=== PATIENT | male | born 1985 | race Two or more races ===

== ENCOUNTER 2018-08-08 11:07 | Emergency (ER) | payer MEDICAID ==
[~2018-08-08] VITALS: Ht 185.4 cm; Wt 99.8 kg
[2018-08-08] MEDS ORDERED: FLUORESCEIN SODIUM 1 MG STRIP OP ONE (11:30)
[2018-08-08] MEDS ORDERED: TETRACAINE HCL 0.5% OPHT DROP 2 ML BOTTLE OP ONE (11:30)
[2018-08-08] MEDS ORDERED: TETRACAINE HCL 0.5% OPHT DROP 2 ML BOTTLE ONE (11:32)
[2018-08-08] MEDS ORDERED: FLUORESCEIN SODIUM 1 MG STRIP ONE (11:32)
--- NOTE | 2018-08-08 11:40 | NUR ---
spoke with ([facility]) via telephone.
[2018-08-08] MEDS ORDERED: GENTAMICIN SULFATE OPHT DROP 5 ML BOTTLE ONE (11:58)
[2018-08-08] MEDS ORDERED: GENTAMICIN SULFATE OPHT DROP 5 ML BOTTLE OP ONE (12:00)
--- NOTE | 2018-08-08 12:01 | NUR ---
Patient is now waiting for the metal eye shield from [employer]@this time. [employer] staff Edwin [email or web address].
--- NOTE | 2018-08-08 12:59 | NUR ---
Patient discharged to home in stable conditon. Written and verbal after care instructions given. Patient verbalizes understanding of instructions. Stressed follow up as advised by . Eye shield was placed to left eye by Mahendra Maynard LVN as ordered by .
== END 2018-08-08 13:01 | disposition home or self-care (01) ==
LOC: ER 11:10
DX: S05.02XA Injury of conjunctiva and corneal abrasion without foreign body, left eye, initial encounter (principal); W22.8XXA Striking against or struck by other objects, initial encounter; Y93.89 Activity, other specified; Y92.89 Other specified places as the place of occurrence of the external cause; Y99.8 Other external cause status
CPT/HCPCS: A4663